=== PATIENT | male | born 1975 | race Caucasian/White ===

== ENCOUNTER → 2020-12-30 13:43 | Outpatient (BNVA) | payer SELFPAY | PROVIDERS: Family Provider Family Medicine; PCP Family Medicine; Visit Provider Surgery | DX: Z86.010 Personal history of colon polyps (principal); Z20.822 Contact with and (suspected) exposure to COVID-19 | CPT/HCPCS: 87635 ==

== ENCOUNTER 2021-01-02 07:04 | Day surgery (SDC) | payer SELFPAY ==
[2020-12-31 14:34] VITALS: BMI 28.8
[2021-01-02 07:21] VITALS: BP 135/84; PULSE 87; RESP 18; TEMP 36.4; O2SAT 98
[2021-01-02] MEDS: sodium chloride 0.9% 1,000 ML 30 ML IV (07:31)
--- NOTE | 2021-01-02 08:00 | ANES.PREANE2 ---
Pre-Anesthetic Assessment Pre-Anesthetic Assessment: Height/Weight: Height 1.75 m Weight 88.451 kg Temp Pulse Resp BP Pulse Ox 97.6 F 87 18 135/84 98 01/02/21 07:21 01/02/21 07:21 01/02/21 07:21 01/02/21 07:21 01/02/21 07:21 Preop Diagnosis: screening colonoscopy Proposed Procedure: Operation Date: 01/02/21 08:00 Proposed Procedures p Colonoscopy 87218 Z86.010(Not Applicable) - Wolf Nguyen MD Was Beta Madai taken within 24 hours: N/A Was Clonidine taken within 24 hours: N/A Last intake: Intake Last Liquid Date 01/01/21 Last Liquid Time 23:00 Last Solid Date 12/31/20 Last Solid Time 23:00 Social: Social History: No alcohol and No tobacco Exam: Pre-Anes Outpt Exam: alert, oriented x 3, clear to auscultation bilaterally and regular rate & rhythm Airway: Submandibular: WNL Cervical ROM: WNL MP: 2 History/ROS: No significant history except as noted Pulmonary: Pulmonary: None reported CV/HEM: CV/HEM: None reported : : None reported Hepatic: Hepatic: None reported GI: GI: GERD Metabolic: Metabolic: DM (borderline) and Thyroid Musc/skel: Musc/skel: None reported Neuropsych: Neuropsych: None reported Anesthetic Plan: ASA status: 1 Anesthesia: MAC Risk of > 500 ml blood loss (7ml/kg in children): No Meds/Allergies Current Medications: Current Medications Generic Name Dose Route Start Last Admin Trade Name Freq PRN Reason Stop Dose Admin Sodium Chloride 1,000 mls @ 30 ml s/hr 01/02/21 07:15 01/02/21 07:31 Sodium Chloride 0.9% IV 01/03/21 07:14 30 mls/hr .Q24H KIM Administration PFSH Anesthesia PFSH: Medical History GERD (gastroesophageal reflux disease) History of colon polyps Hypothyroidism Surgical History History of colonoscopy with polypectomy 2004 History of esophagogastroduodenoscopy (EGD) 2004 Family History Other CAD (coronary artery disease) Cancer Hypertension Denies family history of Diabetes Stroke Social History Smoking and tobacco status: never smoked Alcohol intake: current Alcohol intake frequency: few times a month Lives independently: Yes Household members: spouse and children Marital status: Data Anesthesia Cardiac Studies: No Data to Display
--- NOTE | 2021-01-02 08:04 | W.PM.OPSUD ---
Surgery/Procedure H&P Update DATE OF PROCEDURE: January 02, 2021 DATE H&P PERFORMED: 12/02/20 H&P UPDATE INFORMATION: I have reviewed H&P completed within last 30 days, I have examined patient prior to procedure and No changes to prior documentation PREOP DIAGNOSIS: screening colonoscopy PLANNED PROCEDURE: Operation Date: 01/02/21 08:00 Proposed Procedures p Colonoscopy 14794 Z86.010(Not Applicable) - Wolf Nguyen MD
[2021-01-02 08:29] VITALS: BP 123/82; PULSE 75; RESP 18; TEMP 36.3; O2SAT 99
[2021-01-02 08:56] VITALS: BP 121/78; PULSE 80; RESP 16; O2SAT 98
--- NOTE | 2021-01-02 13:38 | ANE.PACU2 ---
Inpatient post-anesthesia follow up: Airway intact: Yes Vital signs: Temperature 97.4 F Pulse Rate 80 Respiratory Rate 16 Blood Pressure 121/78 Pulse Oximetry 98 Oxygen Delivery Me thod Room Air Oxygen Flow Rate Fraction of Inspir ed Oxygen Hydration adequate: Yes Nausea and vomiting: No Pain level: 1 Mental status: Baseline
== END 2021-01-02 09:19 | disposition home or self-care (01) ==
PROVIDERS: PCP Family Medicine; Visit Provider Surgery
PROC: 0DJD8ZZ Inspection of Lower Intestinal Tract, Via Natural or Artificial Opening Endoscopic (ICD-10-PCS; CPT 45378; principal; 2021-01-02 08:00)
DX: Z12.11 Encounter for screening for malignant neoplasm of colon (principal); Z86.010 Personal history of colon polyps; K64.8 Other hemorrhoids; K64.4 Residual hemorrhoidal skin tags; K21.9 Gastro-esophageal reflux disease without esophagitis; E11.9 Type 2 diabetes mellitus without complications; E03.9 Hypothyroidism, unspecified
CPT/HCPCS: 45378; 96360; J2704; J7030

== ENCOUNTER → 2021-04-15 09:48 | Outpatient (BNVA) | payer SELFPAY | PROVIDERS: PCP Family Medicine; Visit Provider Internal Medicine Rheumatology | DX: M15.9 Polyosteoarthritis, unspecified (principal); R76.8 Other specified abnormal immunological findings in serum; Z79.899 Other long term (current) drug therapy; Z11.59 Encounter for screening for other viral diseases; Z11.1 Encounter for screening for respiratory tuberculosis; Z71.89 Other specified counseling | CPT/HCPCS: 99204 ==

== ENCOUNTER 2021-04-15 12:09 | Outpatient (CLI) | payer SELFPAY ==
--- NOTE | 2021-04-15 12:21 | XR_ITS ---
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 Small heel spurs. No soft tissue foreign rk s are seen. XR/XR foot LT min 3V* [id number] IMPRESSION: 1. 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 2. No fracture or dislocation.
--- NOTE | 2021-04-15 12:21 | XR_ITS ---
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 The hand shows normal bony alignment. There is no irregularity of the bony architecture. XR/XR hand RT min 3V* [id number] IMPRESSION: Normal right hand.
--- NOTE | 2021-04-15 12:21 | XR_ITS ---
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 The joint structures are relatively well maintained. A 3 mm metallic soft tissue foreign body is seen along the thumb metacarpal. XR/XR hand LT min 3V* [id number] IMPRESSION: 1. No fracture or dislocation. 2. 3 mm metallic soft tissue foreign body seen along the thumb metacarpal.
--- NOTE | 2021-04-15 12:21 | XR_ITS ---
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 No soft tissue foreign bodies are seen. XR/XR foot RT min 3V* [id number] IMPRESSION: 1. No fracture or dislocation. 2. 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 Small heel spurs.
[2021-04-15 13:33] LABS: Basophils % 0.7 %; Eosinophils # 0.1 10^3/uL (0.0-0.8); Eosinophils % 1.8 %; Hematocrit 43.1 % (42.0-52.0); Hemoglobin 15.3 g/dL (11.7-16.6); Lymphocytes # 1.9 10^3/uL (0.8-4.8); Lymphocytes % 42.2 %; Mean Corpuscular HGB Conc 35.5 g/dL (30.0-36.0); Mean Corpuscular Volume 87.2 fl (80-94); Mean Platelet Volume 10.3 fL (7.4-10.4); Monocytes # 0.5 10^3/uL (0.2-0.9); Neutrophils # 2.03 10^3/uL (1.8-7.7); Neutrophils % 45.1 %; Nucleated Red Blood Cells % 0 %; Platelet Count 217 10^3/cmm (130-400); Red Blood Count 4.94 10^6/uL (4.1-5.3); Red Cell Distribution Width 11.9 % (12.1-15.1); White Blood Count 4.5 10^3/uL (4.0-10.0)
[2021-04-15 14:05] LABS: Alanine Aminotransferase 55 U/L (0-41); Albumin Level 4.7 g/dL (3.5-5.2); Alkaline Phosphatase 46 IU/L (40-130); Aspartate Amino Transferase 33 U/L (0-40); C Reactive Protein 0.4 mg/L (0.0-4.9); Globulin 2.5 g/dL (1.3-4.6); Glomerular Filtration Rate 179.8 mL/min (90-130); Total Bilirubin 1.5 mg/dL (0.15-1.2); Total Protein 7.2 g/dL (6.6-8.7)
[2021-04-15 14:22] LABS: Hepatitis B Core AB, Total Non-Reactive (Nonreactive); Hepatitis B Surface Antigen Non-Reactive (Nonreactive); Hepatitis C Virus Antibody Non-Reactive (Nonreactive)
[2021-04-16 13:56] LABS: Erythrocyte Sedimentation Rate 2 mm/hr (0-10)
[2021-04-16 14:07] LABS: Cyclic Citrullinated Peptide <16 UNITS
[2021-04-17 15:03] LABS: Quantiferon Mitogen 9.44 IU/mL; Quantiferon Nil 0.02 IU/mL; Quantiferon TB Gold NEGATIVE (NEGATIVE)
[2021-04-17 15:37] LABS: THYROID PEROXIDASE ANTIBODIES 4 IU/mL (<9)
[2021-04-17 16:38] LABS: CENTROMERE B ANTIBODY <1.0 NEG AI (<1.0 NEG); JO-1 ANTIBODY <1.0 NEG AI (<1.0 NEG); RNP ANTIBODY <1.0 NEG AI (<1.0 NEG); SCL-70 ANTIBODY <1.0 NEG AI (<1.0 NEG); SJOGREN'S ANTIBODY (SS-A) <1.0 NEG AI (<1.0 NEG); SM ANTIBODY <1.0 NEG AI (<1.0 NEG); SS-B <1.0 NEG AI (<1.0 NEG)
[2021-04-17 17:32] LABS: ANA SCREEN, IFA NEGATIVE (NEGATIVE)
[2021-04-18 12:13] LABS: COMPLEMENT COMPONENT C3C 119 mg/dL (82-185); COMPLEMENT COMPONENT C4C 16 mg/dL (15-53)
[2021-04-18 14:28] LABS: COMPLEMENT, TOTAL (CH50) 60 U/mL (31-60)
[2021-04-18 17:58] LABS: DNA AB (DS) CRITHIDIA,IFA NEGATIVE (NEGATIVE)
== END 2021-04-15 12:10 | disposition home or self-care (01) ==
LOC: RAD 12:17
PROVIDERS: PCP Family Medicine; Visit Provider Internal Medicine Rheumatology
DX: M19.90 Unspecified osteoarthritis, unspecified site (principal); Z79.899 Other long term (current) drug therapy; R76.8 Other specified abnormal immunological findings in serum; Z11.59 Encounter for screening for other viral diseases; Z11.1 Encounter for screening for respiratory tuberculosis
CPT/HCPCS: 36415; 73130; 73630; 80076; 82565; 85025; 85651; 86140; 86160; 86162; 86200; 86235; 86255; 86376; 86480; 86704; 86803; 87340

== ENCOUNTER 2021-12-23 08:39 | Outpatient (CLI) | payer BC, MEDICAID, SELFPAY ==
[2021-12-23 09:14] LABS: Basophils % 0.8 %; Eosinophils # 0.2 10^3/uL (0.0-0.8); Eosinophils % 4.5 %; Hematocrit 41.8 % (42.0-52.0); Hemoglobin 14.7 g/dL (11.7-16.6); Lymphocytes # 1.5 10^3/uL (0.8-4.8); Lymphocytes % 41.1 %; Mean Corpuscular HGB Conc 35.2 g/dL (30.0-36.0); Mean Corpuscular Hemoglobin 31.5 pg (28.0-34.0); Mean Corpuscular Volume 89.5 fl (80-94); Mean Platelet Volume 10.4 fL (7.4-10.4); Monocytes # 0.6 10^3/uL (0.2-0.9); Monocytes % 17.7 %; Neutrophils # 1.26 10^3/uL (1.8-7.7); Neutrophils % 35.6 %; Nucleated Red Blood Cells % 0 %; Platelet Count 180 10^3/cmm (130-400); Red Blood Count 4.67 10^6/uL (4.1-5.3); White Blood Count 3.6 10^3/uL (4.0-10.0)
[2021-12-23 09:40] LABS: Alanine Aminotransferase 35 U/L (0-41); Albumin Level 4.8 g/dL (3.5-5.2); Anion Gap 11.5 (5-19); Aspartate Amino Transferase 27 U/L (0-40); Blood Urea Nitrogen 15 mg/dL (6-20); Calcium 9.1 mg/dL (8.5-10.5); Carbon Dioxide 29 mmol/L (22-29); Chloride 105 mmol/L (98-107); Cholesterol 141 mg/dL (0-200); Globulin 2.9 g/dL (1.3-4.6); Glucose 134 mg/dL (65-115); Osmolality Calculated 295 mOsm/kg (285-295); Potassium 4.5 mmol/L (3.5-5.1); Sodium 141 mmol/L (136-145); Total Bilirubin 1.3 mg/dL (0.15-1.2); Total Protein 7.7 g/dL (6.6-8.7); Triglycerides 45 mg/dL (0-150)
[2021-12-23 09:41] LABS: Alkaline Phosphatase 48 IU/L (40-130); Chol HDL Ratio 3.53 mg/dL (1.0-5.00); HDL Cholesterol 40 mg/dL (60-100); LDL Cholesterol Calculated 92 mg/dL (50-129); Thyroid Stimulating Hormone 0.85 uIU/mL (0.27-4.20)
[2021-12-23 09:48] LABS: Estmated Average Glucose 117; Hemoglobin A1C 5.7 % (4.0-6.0)
== END 2021-12-23 08:40 | disposition home or self-care (01) ==
PROVIDERS: PCP Family Medicine; Visit Provider Family Medicine
DX: Z00.00 Encounter for general adult medical examination without abnormal findings (principal); Z13.220 Encounter for screening for lipoid disorders; R73.01 Impaired fasting glucose; E03.9 Hypothyroidism, unspecified
CPT/HCPCS: 36415; 80053; 80061; 83036; 84439; 84443; 85025

== ENCOUNTER 2023-06-16 09:50 | Outpatient (CLI) | payer BC, MEDICAID, SELFPAY ==
[2023-06-16 10:13] LABS: Basophils % 0.7 %; Eosinophils # 0.1 10^3/uL (0.0-0.8); Eosinophils % 1.3 %; Hematocrit 43.5 % (37-53); Lymphocytes # 1.8 10^3/uL (0.8-4.8); Lymphocytes % 32.8 %; Mean Corpuscular HGB Conc 35.2 g/dL (30-55); Mean Corpuscular Hemoglobin 31.2 pg (27-33); Mean Corpuscular Volume 88.8 fl (82-101); Mean Platelet Volume 9.7 fL (7.4-10.4); Monocytes # 0.6 10^3/uL (0.2-0.9); Monocytes % 10.8 %; Neutrophils # 2.96 10^3/uL (1.8-7.7); Nucleated Red Blood Cells % 0 %; Platelet Count 220 10^3/cmm (157-399); Red Cell Distribution Width 11.8 % (12.1-15.1); White Blood Count 5.48 10^3/uL (3.29-11.43)
[2023-06-16 10:48] LABS: Alanine Aminotransferase 93 U/L (0-41); Alkaline Phosphatase 54 U/L (40-130); Anion Gap 16.7 (5-19); Aspartate Amino Transferase 70 U/L (0-40); Blood Urea Nitrogen 10 mg/dL (6-20); Carbon Dioxide 29 mmol/L (22-29); Chloride 97 mmol/L (98-107); Chol HDL Ratio 4.52 mg/dL (1.0-5.00); Cholesterol 199 mg/dL (0-200); Free T4 Free Thyroxine 1.29 ng/dL (0.82-1.77); Globulin 2.9 g/dL (1.3-4.6); Glomerular Filtration Rate 103.6 mL/min (90-130); Glucose 173 mg/dL (65-115); HDL Cholesterol 44 mg/dL (60-100); LDL Cholesterol Calculated 132 mg/dL (50-129); Osmolality Calculated 289 mOsm/kg (285-295); Potassium 4.7 mmol/L (3.5-5.1); Sodium 138 mmol/L (136-145); Thyroid Stimulating Hormone 1.19 uIU/mL (0.27-4.20); Total Bilirubin 2.5 mg/dL (0.15-1.2); Total Protein 7.9 g/dL (6.6-8.7); Triglycerides 114 mg/dL (0-150)
== END 2023-06-16 09:51 | disposition home or self-care (01) ==
LOC: LAB 09:50
PROVIDERS: PCP Family Medicine; Visit Provider Family Medicine
DX: Z51.81 Encounter for therapeutic drug level monitoring (principal); Z13.220 Encounter for screening for lipoid disorders; E03.9 Hypothyroidism, unspecified
CPT/HCPCS: 36415; 80053; 80061; 84439; 84443; 85025

== ENCOUNTER 2023-06-18 10:27 | Outpatient (CLI) | payer BC, MEDICAID, SELFPAY ==
--- NOTE | 2023-06-18 10:31 | XR_ITS ---
WS: [id number] Right knee, 3 views, 06/18/2023 Clinical Data: Right knee pain Comparison: None. Findings: No fractures or dislocations are seen. There is minimal joint space narrowing of the medial and later al joint compartment. The posterior patella shows no spurring. There is a small spur of the anterior superior patella. The soft tissues are unremarkable. Impression: Minimal joint space narrowing of the medial and lateral joint compartments of the right knee. Kellgren-Sorin Classification: grade 1 (doubtful): doubtful joint space narrowing and possible ost eophytic lipping
== END 2023-06-18 10:28 | disposition home or self-care (01) ==
LOC: RAD 10:28
PROVIDERS: PCP Family Medicine; Visit Provider Family Medicine
DX: M25.561 Pain in right knee (principal)
CPT/HCPCS: 73562

== ENCOUNTER 2023-07-16 06:33 | Outpatient (CLI) | payer BC, MEDICAID, SELFPAY ==
--- NOTE | 2023-07-16 06:45 | USR_ITS ---
PROCEDURE INFORMATION: Exam: US Abdomen, Limited; Right Upper Quadrant Exam date and time: 07/16/2023 6:40 AM Age: 48 years old Clinical indication: Abnormal findings; Abnormal lab test; Other: Elevated transaminases TECHNIQUE: Imaging protocol: Real time ultrasound of the abdomen with image documentation. Limited exam focused on the right upper quadrant. COMPARISON: No relevant prior studies available. FINDINGS: Liver: The liver is mildly enlarged measuring approximately 16.5 cm in span. It appears homogeneous without focal lesion but echogenicity is increased. Gallbladder: No cholelithiasis or gallbladder wall thickening identified. Sonographic Matta's sign-not reported. Biliary ducts: The extrahepatic bile duct is nondilated measuring 3 mm diameter. Pancreas: The pancreas is essentially nonvisualized, due to overlying bowel contents. Right kidney: Right kidney demonstrates no hydronephrosis or increased echogenicity. Aorta: The visualized portion of the abdominal aorta is of normal caliber at 1.4 cm diameter. Portal venous: Blood flow within the main portal vein is directed appropriately towards the liver. US/US abdomen limited [id number] IMPRESSION: Mild hepatomegaly. Hepatic steatosis. Unremarkable appearance of the gallbladder, no biliary ductal dilatation evident.
== END 2023-07-16 06:34 | disposition home or self-care (01) ==
LOC: RAD 06:33
PROVIDERS: PCP Family Medicine; Visit Provider Family Medicine
DX: R74.01 Elevation of levels of liver transaminase levels (principal); R17 Unspecified jaundice; R16.0 Hepatomegaly, not elsewhere classified
CPT/HCPCS: 76705

== ENCOUNTER 2023-07-20 10:56 | Outpatient (CLI) | payer BC, MEDICAID, SELFPAY ==
--- NOTE | 2023-07-20 11:00 | MR_ITS ---
WS: [id number] MRI RIGHT KNEE NONCONTRAST TECHNIQUE: Axial PD, coronal PD fat sat, coronal PD, sagittal PD, and sagittal PD fat-sat images obta ined. CLINICAL INFORMATION: Right knee pain COMPARISON: None. FINDINGS: Distal quadriceps and patella tendons are intact. Hypertrophic patella. ACL and PCL appear intact. Co mplex bucket-handle type tear involving the posterior horn medial meniscus with meniscal fragment ext ending into the posterior intercondylar notch. Posterior meniscal tear extends to the articular surfa ce and extends to the anterior horn peripherally. Normal lateral meniscus. Mild chondromalacia patella. Increased signal in the distal lateral collateral ligament and arcuate l igament with irregularity. Recommend correlation for posterolateral corner injury. Medial collateral ligament appears intact. Normal popliteal fossa. IMPRESSION: 1. ACL and PCL are intact. 2. Complex bucket-handle type tear involving the medial meniscus with posterior intercondylar fragme nt. 3. Increased signal with irregularity involving the distal lateral collateral and arcuate ligament. Recommend correlation for posterolateral corner injury. 4. Medial collateral ligament appears intact. 5. Hypertrophic patella mild chondromalacia. Outbridge grading: grade II: blister-like swelling/fraying of articular cartilage extending to surfac e
== END 2023-07-20 10:57 | disposition home or self-care (01) ==
LOC: RAD 10:57
PROVIDERS: PCP Family Medicine; Visit Provider Family Medicine
DX: S83.231A Complex tear of medial meniscus, current injury, right knee, initial encounter (principal); X58.XXXA Exposure to other specified factors, initial encounter; M22.41 Chondromalacia patellae, right knee
CPT/HCPCS: 73721

== ENCOUNTER 2023-07-23 10:42 | Outpatient (CLI) | payer BC, MEDICAID, SELFPAY ==
[2023-07-23 11:24] LABS: Alanine Aminotransferase 42 U/L (0-41); Albumin Level 4.9 g/dL (3.5-5.2); Alkaline Phosphatase 54 U/L (40-130); Aspartate Amino Transferase 30 U/L (0-40); Blood Urea Nitrogen 10 mg/dL (6-20); Calcium 9.6 mg/dL (8.5-10.5); Carbon Dioxide 25 mmol/L (22-29); Chloride 103 mmol/L (98-107); Gamma Glutamyl Transferase 42 U/L (8-61); Globulin 3.2 g/dL (1.3-4.6); Glomerular Filtration Rate 143.8 mL/min (90-130); Glucose 160 mg/dL (65-115); Lactate Dehydrogenase 192 U/L (135-225); Osmolality Calculated 294 mOsm/kg (285-295); Sodium 141 mmol/L (136-145); Total Bilirubin 1.6 mg/dL (0.15-1.2); Total Protein 8.1 g/dL (6.6-8.7)
[2023-07-23 11:38] LABS: Hepatitis A Antibody IgM Non-Reactive (Nonreactive); Hepatitis B Core IgM Non-Reactive (Nonreactive); Hepatitis B Surface Antigen Non-Reactive (Nonreactive); Hepatitis C Virus Antibody Non-Reactive (Nonreactive)
[2023-07-23 11:58] LABS: Estmated Average Glucose 146; Hemoglobin A1C 6.7 % (4.0-6.0)
== END 2023-07-23 10:43 | disposition home or self-care (01) ==
LOC: LAB 10:42
PROVIDERS: PCP Family Medicine; Visit Provider Family Medicine
DX: R17 Unspecified jaundice (principal); R74.01 Elevation of levels of liver transaminase levels; R73.03 Prediabetes; Z51.81 Encounter for therapeutic drug level monitoring
CPT/HCPCS: 36415; 80053; 80074; 82247; 82248; 82977; 83036; 83615

== ENCOUNTER 2023-10-11 20:00 | Outpatient (CLI) | payer BC, SELFPAY | END 2023-10-11 20:01 | disposition home or self-care (01) | LOC: SLEEP 10-12 06:32 | PROVIDERS: PCP Family Medicine; Visit Provider Family Medicine | DX: G47.33 Obstructive sleep apnea (adult) (pediatric) (principal) | CPT/HCPCS: 95810 ==

== ENCOUNTER → 2024-01-06 13:16 | Outpatient (BNVA) | payer BC, SELFPAY | PROVIDERS: PCP Family Medicine; Visit Provider Family Medicine | DX: E11.9 Type 2 diabetes mellitus without complications (principal); E03.9 Hypothyroidism, unspecified; Z51.81 Encounter for therapeutic drug level monitoring; Z13.220 Encounter for screening for lipoid disorders | CPT/HCPCS: 80053; 80061; 83036; 84439; 84443; 85025 ==

== ENCOUNTER → 2024-03-16 10:56 | Outpatient (BNVA) | payer BC, SELFPAY | PROVIDERS: PCP Family Medicine; Visit Provider Family Medicine | DX: L98.9 Disorder of the skin and subcutaneous tissue, unspecified (principal) | CPT/HCPCS: 88305 ==

== ENCOUNTER → 2024-05-25 15:43 | Outpatient (BNVA) | payer BC, SELFPAY | PROVIDERS: Visit Provider Family Medicine | DX: Z51.81 Encounter for therapeutic drug level monitoring (principal); E11.9 Type 2 diabetes mellitus without complications | CPT/HCPCS: 80053; 83036 ==

== ENCOUNTER 2024-06-05 12:41 | Outpatient (RCR) | payer BC, SELFPAY | END 2024-06-17 23:59 | disposition home or self-care (01) | LOC: SPT 12:41 | PROVIDERS: Visit Provider Orthopaedic Surgery | DX: Z47.1 Aftercare following joint replacement surgery (principal); Z96.651 Presence of right artificial knee joint | CPT/HCPCS: 97110; 97161 ==

== ENCOUNTER 2024-06-18 06:00 | Outpatient (RCR) | payer BC, MEDICAID, SELFPAY | END 2024-07-18 23:59 | disposition home or self-care (01) | LOC: SPT 06:00 | PROVIDERS: PCP Family Medicine; Visit Provider Orthopaedic Surgery | DX: Z47.1 Aftercare following joint replacement surgery (principal); Z96.651 Presence of right artificial knee joint | CPT/HCPCS: 97110 ==